=== PATIENT | female | born 1975 | race American Indian/Alaskan Native ===

== ENCOUNTER 2019-04-02 01:19 | Emergency (ER) | payer OTHER ==
[~2019-04-02] VITALS: Ht 162.6 cm; Wt 90.9 kg
[2019-04-02] MEDS ORDERED: LEVE250T55 PO (01:35)
[2019-04-02] MEDS ORDERED: PHENL PO (01:35)
[2019-04-02 02:59] LABS: BASOPHILS % (AUTO) 0.3 % (0.0-2.0); EOSINOPHILS % (AUTO) 5.9 % (1.0-6.0); HEMATOCRIT 34.8 % (36-46); HEMOGLOBIN 11.8 g/dL (12.0-16.0); LYMPHOCYTES # (AUTO) 1.5 K/uL (1.0-4.8); LYMPHOCYTES % (AUTO) 36.1 % (22.0-44.0); MEAN CORPUSCULAR HEMOGLOBIN 29.7 pg (26.0-34.0); MEAN CORPUSCULAR VOLUME 87 fL (80-100); MONOCYTES # (AUTO) 0.3 K/uL (0.1-1.0); MONOCYTES % (AUTO) 7.7 % (2.0-9.0); NEUTROPHILS # (AUTO) 2.1 K/uL (1.8-7.7); PLATELET COUNT (AUTO) 338 K/uL (150-450); RED BLOOD CELL COUNT(AUTO) 3.98 MIL/uL (4.00-5.20); RED CELL DISTRIBUTION WIDTH 15.7 % (11.5-14.5)
[2019-04-02] MEDS ORDERED: LORazepam 2 MG/ML VIAL ONE (03:10)
[2019-04-02 03:12] LABS: ANION GAP 8 mmol/L (8-16); CALCIUM, TOTAL 8.7 mg/dL (8.8-10.5); CARBON DIOXIDE 27 mmol/L (22-29); CHLORIDE 105 mmol/L (98-107); CREATININE 0.74 mg/dL (0.60-1.30); GLOMERULAR FILTR. RATE CALC > 60 mL/min (>60); GLUCOSE,RANDOM 85 mg/dL (70-110); POTASSIUM 4.1 mmol/L (3.5-5.1); SODIUM SERUM 140 mmol/L (136-145); UREA NITROGEN, BLOOD 17 mg/dL (7-18)
[2019-04-02 03:23] LABS: ALBUMIN 3.8 g/dL (3.4-5.0); ALKALINE PHOSPHATASE 116 U/L (46-116); ASPARTATE AMINOTRANSFERASE 18 U/L (15-37); BILIRUBIN,TOTAL 0.1 mg/dL (0.1-1.0); HCG,QUANTITATIVE 1 mIU/mL (0-6); TOTAL PROTEIN, SERUM 7.4 g/dL (6.4-8.2)
[2019-04-02] MEDS ORDERED: LORazepam 2 MG/ML VIAL IM ONE (03:30)
[2019-04-02] MEDS ORDERED: LevETIRAcetam 1,000 MG in DEXTROSE 5%-WATER 100 ML IV ONE (03:30)
[2019-04-02 03:33] LABS: ALANINE AMINOTRANSFERASE 3 U/L (12-78)
[2019-04-02] MEDS ORDERED: LORazepam 2 MG/ML VIAL IVP ONE (04:00)
[2019-04-02] MEDS ORDERED: ACETAMINOPHEN 325 MG TABLET PO PRN (05:15)
[2019-04-02] MEDS ORDERED: ONDANSETRON HCL 4 MG/2 ML VIAL IVP PRN (05:15)
[2019-04-02] MEDS ORDERED: 0.9% SODIUM CHLORIDE 10 ML SYRINGE IVP PRN (05:15)
[2019-04-02 05:27] LABS: PHENYTOIN (DILANTIN) 19.4 mcg/mL (10.0-20.0)
[2019-04-02] MEDS ORDERED: SODIUM CHLORIDE 0.9% 1,000 ML IV ONE (06:15)
[2019-04-02] MEDS ORDERED: LevETIRAcetam 2,000 MG in DEXTROSE 5%-WATER 100 ML IV ONE (06:15)
[2019-04-02 06:30] VITALS: BP 100/59
== END 2019-04-02 07:27 | disposition short-term general hospital (02) ==
LOC: EMS 01:23
DX: G40.901 Epilepsy, unspecified, not intractable, with status epilepticus (principal); Z88.6 Allergy status to analgesic agent
CPT/HCPCS: 36415; 70450; 80053; 80185; 84702; 85025; 93005; 96365; 96366; 96372; 96375; 99291; G0480; J0712; J2060; J7060

== ENCOUNTER 2019-04-10 18:57 | Inpatient (IN) | payer OTHER ==
[~2019-04-10] VITALS: Ht 162.6 cm; Wt 92.0 kg
[~2019-04-10 18:57] MED LIST: LEVE250T55 PO; PHENL PO
[2019-04-10] MEDS ORDERED: DIPH25 PO (19:55)
[2019-04-10] MEDS ORDERED: PHEN100C23 PO (19:55)
[2019-04-10] MEDS ORDERED: ASPI-728 PO (19:55)
[2019-04-10] MEDS ORDERED: LevETIRAcetam 1,000 MG in DEXTROSE 5%-WATER 100 ML IV ONE (20:00)
[2019-04-10 20:13] LABS: BASOPHILS % (AUTO) 0.2 % (0.0-2.0); EOSINOPHILS % (AUTO) 4.7 % (1.0-6.0); HEMATOCRIT 34.3 % (36-46); HEMOGLOBIN 11.6 g/dL (12.0-16.0); LYMPHOCYTES # (AUTO) 1.4 K/uL (1.0-4.8); LYMPHOCYTES % (AUTO) 30.2 % (22.0-44.0); MEAN CORPUSCULAR HEMOGLOBIN 29.5 pg (26.0-34.0); MEAN CORPUSCULAR HGB CONC 33.9 G/dL (31.0-37.0); MEAN CORPUSCULAR VOLUME 87 fL (80-100); MONOCYTES # (AUTO) 0.4 K/uL (0.1-1.0); MONOCYTES % (AUTO) 9.1 % (2.0-9.0); NEUTROPHILS # (AUTO) 2.6 K/uL (1.8-7.7); NEUTROPHILS % (AUTO) 55.8 % (40.0-70.0); PLATELET COUNT (AUTO) 313 K/uL (150-450); RED BLOOD CELL COUNT(AUTO) 3.94 MIL/uL (4.00-5.20); RED CELL DISTRIBUTION WIDTH 15.7 % (11.5-14.5)
[2019-04-10 20:23] LABS: ANION GAP 8 mmol/L (8-16); CALCIUM, TOTAL 9.5 mg/dL (8.8-10.5); CARBON DIOXIDE 29 mmol/L (22-29); CHLORIDE 105 mmol/L (98-107); CREATININE 0.64 mg/dL (0.60-1.30); GLOMERULAR FILTR. RATE CALC > 60 mL/min (>60); GLUCOSE,RANDOM 103 mg/dL (70-110); POTASSIUM 4.1 mmol/L (3.5-5.1); SODIUM SERUM 142 mmol/L (136-145); UREA NITROGEN, BLOOD 7 mg/dL (7-18)
[2019-04-10 20:38] LABS: ALANINE AMINOTRANSFERASE 7 U/L (12-78); ALBUMIN 3.9 g/dL (3.4-5.0); ALKALINE PHOSPHATASE 141 U/L (46-116); ASPARTATE AMINOTRANSFERASE 32 U/L (15-37); BILIRUBIN,TOTAL 0.1 mg/dL (0.1-1.0); HCG,QUANTITATIVE 1 mIU/mL (0-6); TOTAL PROTEIN, SERUM 7.7 g/dL (6.4-8.2)
[2019-04-10] MEDS ORDERED: 0.9% SODIUM CHLORIDE 10 ML SYRINGE IVP PRN (22:00)
[2019-04-10] MEDS ORDERED: ONDANSETRON HCL 4 MG/2 ML VIAL IVP PRN (22:00)
[2019-04-10] MEDS ORDERED: ACETAMINOPHEN 325 MG TABLET PO PRN (22:00)
[2019-04-10 22:05] LABS: PHENYTOIN (DILANTIN) 12.3 mcg/mL (10.0-20.0)
[2019-04-10 23:00] VITALS: BP 125/88
[2019-04-10 23:45] VITALS: BP 142/74
[2019-04-10] MEDS ORDERED: LORazepam 2 MG/ML VIAL IVP PRN (23:45)
[2019-04-11 05:11] VITALS: BP 109/76
[2019-04-11] MEDS ORDERED: 0.9% SODIUM CHLORIDE 10 ML SYRINGE IVP PRN (05:15)
[2019-04-11] MEDS ORDERED: ONDANSETRON HCL 4 MG/2 ML VIAL IVP PRN (05:15)
[2019-04-11 08:25] VITALS: BP 105/68
[2019-04-11] MEDS: DOCUSATE SODIUM 100 MG CAPSULE PO SCH ×2 (10:15→20:09)
[2019-04-11] MEDS: FAMOTIDINE 10 MG/ML 2 ML VIAL IVP SCH (10:15)
[2019-04-11] MEDS: OxyCODONE HCL/ACETAMINOPHEN 5-325 MG TABLET PO PRN ×2 (12:12→20:10)
[2019-04-11] MEDS ORDERED: LEVE500T53 PO (12:46)
[2019-04-11] MEDS: LevETIRAcetam 500 MG TABLET PO SCH ×3 (13:39→22:07)
[2019-04-11 16:35] VITALS: BP 96/70
[2019-04-11] MEDS: DiphenhydrAMINE HCL 25 MG CAPSULE PO PRN ×2 (17:50→23:39)
[2019-04-11 20:04] VITALS: BP 101/79
[2019-04-12 01:00] VITALS: BP 117/69
[2019-04-12] MEDS ORDERED: CETIRIZINE HCL 10 MG TABLET PO ONE (01:15)
[2019-04-12] MEDS: OxyCODONE HCL/ACETAMINOPHEN 5-325 MG TABLET PO PRN ×4 (01:21→23:34)
[2019-04-12 04:44] VITALS: BP 97/69
[2019-04-12 07:05] LABS: BASOPHILS % (AUTO) 1.3 % (0.0-2.0); EOSINOPHILS % (AUTO) 7.6 % (1.0-6.0); HEMATOCRIT 30.5 % (36-46); HEMOGLOBIN 10.4 g/dL (12.0-16.0); LYMPHOCYTES # (AUTO) 1.6 K/uL (1.0-4.8); LYMPHOCYTES % (AUTO) 40.8 % (22.0-44.0); MEAN CORPUSCULAR HEMOGLOBIN 29.9 pg (26.0-34.0); MEAN CORPUSCULAR HGB CONC 34.2 G/dL (31.0-37.0); MEAN CORPUSCULAR VOLUME 88 fL (80-100); MONOCYTES # (AUTO) 0.4 K/uL (0.1-1.0); MONOCYTES % (AUTO) 10.1 % (2.0-9.0); NEUTROPHILS # (AUTO) 1.6 K/uL (1.8-7.7); NEUTROPHILS % (AUTO) 40.2 % (40.0-70.0); PLATELET COUNT (AUTO) 274 K/uL (150-450); RED BLOOD CELL COUNT(AUTO) 3.48 MIL/uL (4.00-5.20); RED CELL DISTRIBUTION WIDTH 15.7 % (11.5-14.5)
[2019-04-12 07:17] LABS: ANION GAP 6 mmol/L (8-16); CALCIUM, TOTAL 8.4 mg/dL (8.8-10.5); CARBON DIOXIDE 28 mmol/L (22-29); CHLORIDE 106 mmol/L (98-107); CREATININE 0.65 mg/dL (0.60-1.30); GLOMERULAR FILTR. RATE CALC > 60 mL/min (>60); GLUCOSE,RANDOM 82 mg/dL (70-110); POTASSIUM 4.1 mmol/L (3.5-5.1); SODIUM SERUM 140 mmol/L (136-145); UREA NITROGEN, BLOOD 12 mg/dL (7-18)
[2019-04-12 07:58] VITALS: BP 107/69
[2019-04-12] MEDS: FAMOTIDINE 10 MG/ML 2 ML VIAL IVP SCH (08:10)
[2019-04-12] MEDS: LevETIRAcetam 500 MG TABLET PO SCH ×2 (08:10→20:49)
[2019-04-12] MEDS: DOCUSATE SODIUM 100 MG CAPSULE PO SCH ×2 (08:10→20:48)
[2019-04-12] MEDS: DiphenhydrAMINE HCL 25 MG CAPSULE PO PRN ×2 (08:18→20:50)
[2019-04-12 09:11] LABS: APPEARANCE,URINE CLEAR (CLEAR); BILIRUBIN,URINE NEGATIVE (NEGATIVE); GLUCOSE, URINE (UA) NEGATIVE (NEGATIVE); KETONES,URINE NEGATIVE (NEGATIVE); LEUKOCYTE ESTERASE ,URINE LARGE (NEGATIVE); NITRATE,URINE NEGATIVE (NEGATIVE); OCCULT BLOOD,URINE NEGATIVE (NEGATIVE); PH,URINE 6.5 (5.0-8.0); PROTEIN,URINE NEGATIVE (NEGATIVE); UROBILINOGEN,URINE 0.2 mg/dL (<=1.0)
[2019-04-12 09:18] LABS: AMPHET/METH SCREEN,URINE NEGATIVE (NEGATIVE); BARBITURATE SCREEN, URINE NEGATIVE (NEGATIVE); BENZODIAZEPINES SCREEN,URINE NEGATIVE (NEGATIVE); CANNABINOID SCREEN,URINE NEGATIVE (NEGATIVE); COCAINE SCREEN,URINE NEGATIVE (NEGATIVE); METHADONE SCREEN, URINE NEGATIVE (NEGATIVE); OPIATE SCREEN,URINE NEGATIVE (NEGATIVE)
[2019-04-12 09:21] LABS: PHENCYCLIDINE SCREEN,URINE NEGATIVE (NEGATIVE)
[2019-04-12 09:32] LABS: RBC,URINE 0-2 /HPF (0-2); SQUAMOUS EPITHELIAL CELL,UR Moderate /LPF (None Seen)
[2019-04-12 09:33] LABS: BACTERIA,URINE Moderate /HPF (None Seen)
[2019-04-12 15:53] VITALS: BP 98/66
[2019-04-12] MEDS: PHENYTOIN SODIUM 100 MG ER CAPSULE PO SCH (16:52)
[2019-04-12 20:15] VITALS: BP 108/69
[2019-04-12] MEDS: LACOSAMIDE 100 MG TABLET PO SCH (20:49)
[2019-04-12 23:49] VITALS: BP 107/68
[2019-04-13 04:50] VITALS: BP 93/59
[2019-04-13 08:02] VITALS: BP 101/56
[2019-04-13] MEDS: PHENYTOIN SODIUM 100 MG ER CAPSULE PO SCH (08:51)
[2019-04-13] MEDS: LACOSAMIDE 100 MG TABLET PO SCH ×2 (08:51→20:25)
[2019-04-13] MEDS: FAMOTIDINE 10 MG/ML 2 ML VIAL IVP SCH (08:52)
[2019-04-13] MEDS: LevETIRAcetam 500 MG TABLET PO SCH ×2 (08:55→20:26)
[2019-04-13] MEDS: DOCUSATE SODIUM 100 MG CAPSULE PO SCH ×2 (08:57→20:25)
[2019-04-13] MEDS: OxyCODONE HCL/ACETAMINOPHEN 5-325 MG TABLET PO PRN ×3 (09:34→23:48)
[2019-04-13 15:15] VITALS: BP 100/60
[2019-04-13 20:00] VITALS: BP 99/67
[2019-04-13] MEDS: DiphenhydrAMINE HCL 25 MG CAPSULE PO PRN (20:27)
[2019-04-14 04:00] VITALS: BP 108/71
[2019-04-14 07:33] VITALS: BP 116/68
[2019-04-14] MEDS: LACOSAMIDE 100 MG TABLET PO SCH (08:25)
[2019-04-14] MEDS: DiphenhydrAMINE HCL 25 MG CAPSULE PO PRN (08:25)
[2019-04-14] MEDS: DOCUSATE SODIUM 100 MG CAPSULE PO SCH (08:25)
[2019-04-14] MEDS: LevETIRAcetam 500 MG TABLET PO SCH (08:25)
[2019-04-14] MEDS: PHENYTOIN SODIUM 100 MG ER CAPSULE PO SCH (08:25)
[2019-04-14] MEDS: FAMOTIDINE 10 MG/ML 2 ML VIAL IVP SCH (08:26)
[2019-04-14] MEDS ORDERED: LEVE500T53 PO (14:15)
[2019-04-14] MEDS ORDERED: LACO100 PO (14:15)
[2019-04-14] MEDS ORDERED: PHEN100C23 PO (14:17)
== END 2019-04-14 17:00 | DRG 101 ==
LOC: EMS 18:58 → 6S 21:49
PROVIDERS: ADMIT Internal Medicine; ATTEND Internal Medicine
DX: G40.909 Epilepsy, unspecified, not intractable, without status epilepticus (principal); F33.2 Major depressive disorder, recurrent severe without psychotic features; G83.84 Todd's paralysis (postepileptic); Z86.73 Personal history of transient ischemic attack (TIA), and cerebral infarction without residual deficits; Z88.1 Allergy status to other antibiotic agents; Z88.8 Allergy status to other drugs, medicaments and biological substances
CPT/HCPCS: 70450; 87081; 87086; 97110; 97116; 97162; 97530; J0712; J2060; J2405; J3490; J7060

== ENCOUNTER 2023-07-29 14:03 | Emergency (ER) | payer OTHER ==
[~2023-07-29] VITALS: Ht 167.6 cm; Wt 81.8 kg
[~2023-07-29 14:03] MED LIST changes: +ASPI-1450 PO; +DIPH-1243 PO; +LACO100 PO; -LEVE250T55 PO; +LEVE500T20 PO; +PHEN100C23 PO; -PHENL PO
[2023-07-29 15:48] LABS: BASOPHILS % (AUTO) 0.2 % (0.0-2.0); EOSINOPHILS % (AUTO) 2.9 % (1.0-6.0); HEMATOCRIT 35.5 % (36-46); LYMPHOCYTES # (AUTO) 1.5 K/uL (1.0-4.8); LYMPHOCYTES % (AUTO) 33.6 % (22.0-44.0); MEAN CORPUSCULAR HEMOGLOBIN 29.8 pg (26.0-34.0); MEAN CORPUSCULAR HGB CONC 33.9 G/dL (31.0-37.0); MEAN CORPUSCULAR VOLUME 88 fL (80-100); MONOCYTES # (AUTO) 0.4 K/uL (0.1-1.0); MONOCYTES % (AUTO) 8.3 % (2.0-9.0); NEUTROPHILS # (AUTO) 2.5 K/uL (1.8-7.7); PLATELET COUNT (AUTO) 316 K/uL (150-450); RED BLOOD CELL COUNT(AUTO) 4.04 MIL/uL (4.00-5.20); RED CELL DISTRIBUTION WIDTH 16.7 % (11.5-14.5); WHITE BLOOD COUNT (AUTO) 4.5 K/uL (4.5-11.0)
[2023-07-29 15:56] VITALS: BP 138/82; PULSE 85; RESP 16; TEMP 98.4
[2023-07-29 15:59] LABS: ANION GAP 8 mmol/L (8-16); CALCIUM, TOTAL 8.6 mg/dL (8.8-10.5); CARBON DIOXIDE 27 mmol/L (22-29); CHLORIDE 104 mmol/L (98-107); CREATININE 0.63 mg/dL (0.60-1.30); GLOMERULAR FILTR. RATE CALC > 60 mL/min (>60); GLUCOSE,RANDOM 123 mg/dL (70-110); POTASSIUM 4.1 mmol/L (3.5-5.1); SODIUM SERUM 139 mmol/L (136-145); UREA NITROGEN, BLOOD 11 mg/dL (7-18)
[2023-07-29 16:03] LABS: CHOL/HDL RATIO 2.1 (3.9-5.7); PHENYTOIN (DILANTIN) 7.4 mcg/mL (10.0-20.0)
[2023-07-29 16:11] LABS: ALBUMIN 3.8 g/dL (3.4-5.0); ALKALINE PHOSPHATASE 122 U/L (46-116); ASPARTATE AMINOTRANSFERASE 29 U/L (15-37); BILIRUBIN,TOTAL 0.2 mg/dL (0.1-1.0); HCG,QUANTITATIVE 2 mIU/mL (0-6); PHENYTOIN (DILANTIN) 7.4 mcg/mL (10.0-20.0); TOTAL PROTEIN, SERUM 7.2 g/dL (6.4-8.2)
[2023-07-29 16:22] LABS: PROTHROMBIN TIME 10.6 SEC (9.4-11.6)
[2023-07-29 16:28] LABS: ALANINE AMINOTRANSFERASE < 6 U/L (12-78)
[2023-07-30 10:07] LABS: HEPATITIS A ANTIBODY IGM Negative (Negative); HEPATITIS B CORE IGM Negative (Negative); HEPATITIS C AB (EIA) Non Reactive (Non Reactive)
[2023-07-31 11:07] LABS: HIV 1-2 SCREEN 4TH GEN W/RFLX Non Reactive (Non Reactive)
== END 2023-07-29 16:17 ==
LOC: EDUNIT# 14:03 → EMS 14:04
DX: R56.9 Unspecified convulsions (principal); Z98.51 Tubal ligation status; Z98.890 Other specified postprocedural states; Z88.6 Allergy status to analgesic agent
CPT/HCPCS: 99283; 80061; 86592; 80053; 80185; 84702; 85025; 85610; 36415; 80074; 87389; G0482